=== PATIENT | male | born 1960 | race Caucasian/White ===

== ENCOUNTER 2020-03-25 11:54 | Day surgery (SDC) | payer OTHER, SELFPAY ==
[2020-03-18 10:23] VITALS: BMI 44.5
[2020-03-25 12:23] VITALS: BP 142/80; PULSE 96; RESP 20; TEMP 35.8; O2SAT 94
--- NOTE | 2020-03-25 12:25 | HO.ANESPROP2 ---
HPI - Anesthesia Eval Consult details Narrative: 59yo patient here for colonoscopy PMFSH Past Medical History Medical History (Updated 03/18/20 @ 10:33 by Misti Green) Arthritis Asthma CAD (coronary artery disease) Depression Diabetes Elevated cholesterol Hepatitis HIV (human immunodeficiency virus infection) HTN (hypertension) Myocardial infarction On beta maxx at home Wears dentures Family History Family history of problems with anesthesia: No Surgical History Surgical History (Updated 03/18/20 @ 10:32 by Misti Green) H/O colonoscopy History of esophagogastroduodenoscopy (EGD) Hx of appendectomy Hx of heart artery stent Hx of knee surgery History of Problems with Anesthesia: No Social History Social History Smoking Status: Never smoker Use of substances other than those prescribed or required for medical reasons: No Advance Directives Information Provided: No Recently lost weight without trying: No Meds Allergies Allergy/AdvReac Type Severity Reaction Status Date / Time cat dander [CATS] Allergy Unknown EYES Verified 03/18/20 10:34 SWELLING Home Medications Medication Instructions Recorded Confirmed Type albuterol sulfate 2 puff PO Q4-6H PRN 03/18/20 03/18/20 History allopurinol 2 tab PO DAILY 03/18/20 03/18/20 History nahsydtlz-exwebcrc-ruxgeml ala 1 tab PO DAILY 03/18/20 03/18/20 History [Biktarvy] cholecalciferol (vitamin D3) 25 mcg PO DAILY 03/18/20 03/18/20 History [Vitamin D3] citalopram 1 tab PO DAILY 03/18/20 03/18/20 History enalapril maleate 1 tab PO DAILY 03/18/20 03/18/20 History fluticasone propionate [Flovent 1 puff PO BID 03/18/20 03/18/20 History HFA] hydrochlorothiazide 1 tab PO DAILY 03/18/20 03/18/20 History loratadine 1 tab PO DAILY 03/18/20 03/18/20 History metformin 1 tab PO BID 03/18/20 03/18/20 History metoprolol succinate 1 tab PO DAILY 03/18/20 03/18/20 History rosuvastatin 1 tab PO BEDTIME 03/18/20 03/18/20 History Exam Exam Date and Time: March 25, 2020 1225 Height,Weight and Vital Signs: Height 5 ft 10.5 in Weight 142.882 kg Vital Signs Temp Pulse Resp BP Pulse Ox 03/25/20 12:23 96.5 F L 96 20 142/80 H 94 Pertinent Lab Results Pertinent Lab Results: Lab Results 03/25/20 Range/Units 12:30 POC Glucose 136 H (60-115) mg/dL Airway Mallampati Class: II TM Dist: >3cm Neck ROM: Full Denture: Upper and Lower Heart: RRR Lungs: CTAB Assessment and Plan Assessment Anesthesia Assessment: Anesthesia Plan Discussed and Chart Reviewed Final Anesthetic Review NPO: Yes ASA Class: III Final Preanesthetic Review: No Changes in Pt Med Stat, Meds/Allgs Chart Reviewed, Consent Obtained/Reviewed and Anes Risks/Benef Reviewed Patient Risk: Intermediate Procedure Risk: Low Anesthetic Plan Anesthetic Plan: MAC: Disposition: Standard PACU
[2020-03-25] MEDS: Lactated Ringers 1,000 ML 100 ML IVCONT (12:27)
[2020-03-25 12:34] LABS: Glucose, Whole Blood 136 mg/dL (60-115)
[2020-03-25] MEDS: Metoclopramide HCl 10 MG/2 ML VIAL IVPUSH (12:41)
--- NOTE | 2020-03-25 15:25 | MHC.SHP ---
Pre-Procedural Eval Section B Chief Complaint: Adenomatous, Colon Polyps Details of Present Illness: HX TUBULAR ADENOMAS NO CHANGE FROM PREOP IN DECEMBER-- Relevant Family History (Specify if Yes): No Relevant Social History: None Present Medications: see Short Stay Collaborative assessment Medical History: Significant History (MORBID OBESITY, HIV ON MEDS, HEP B, CAD WITH STENT, DEPRESSION) History of Previous Operations: Relevant previous surgery/procedure and date(s) (COLONOSCOPY-2014; APPENDECTOMY, STENT-2007, KNEE SURGERY) Allergies: Allergies Allergy/AdvReac Type Severity Reaction Status Date / Time cat dander [CATS] Allergy Unknown EYES Verified 03/18/20 10:34 SWELLING Review of Systems Sugical H&P ROS: Negative: Constitution and Respiratory and Yes, Specify: Cardiovascular (HAD STENT), Psychiatric (HX DEPRESSION), Gastrointestinal (POLYPS) and Endocrine (DIABETES) Exam Surgical H&P Exam: Normal: HEENT, Normal: Heart and Normal: Lungs and Significant Findings: Abdomen (OBESE) Plan Diagnosis/Plan: Unchanged Patient has been examined and remains a candidate for the planned procedure YES.
[2020-03-25 16:03] VITALS: BP 127/65; PULSE 84; RESP 16; TEMP 36.1; O2SAT 97
--- NOTE | 2020-03-25 16:06 | PM.PROC ---
Brief Operative Note Date of procedure: 03/25/20 Pre-op diagnosis: Hx of Tubular adenomas Post-op diagnosis: other (VERY POOR PREP) Procedure: EXAM TO CECUM. NO LARGE LESIONS Anesthesia: MAC (ESHA MARINA) Surgeon: Danyelle Miranda Estimated blood loss (mL): 0 Pathology: none sent Condition: stable Disposition: PACU
[2020-03-25 16:18] VITALS: BP 121/71; PULSE 83; RESP 18; TEMP 36.1; O2SAT 95
--- NOTE | 2020-03-26 16:53 | OP_ITS ---
SURGEON: Danyelle Miranda MD PREOPERATIVE DIAGNOSIS: History of tubular adenomas. POSTOPERATIVE DIAGNOSIS: Poor prep to the level of the cecum. PROCEDURE PERFORMED: Colonoscopy. ESTIMATED BLOOD LOSS: No blood loss. COMPLICATIONS: No complications. ANESTHESIA: ANESTHESIOLOGIST: Tina Mcwilliams CRNA.Tina Mcwilliams CRNA. ASSISTANTS: No election assistant. SPECIMENS: No specimens removed. EVP OPERATIONS: Danyelle Miranda M.D. CONDITION POSTPROCEDURE: Stable. FINDINGS: Digital rectal exam revealed sphincter tone to be slightly decreased, only the lower portion the prostate could be felt which appeared to be normal. Video colonoscope was introduced without difficulty from the initial start. There was retention of loose liquid stool, fiber residue, and was able to skirt over areas with some flushing and suctioning, intermittent obstruction due to the fibrous materials and the suction port. Despite obstacles, I was able to get to the level of the cecum with no visualization of the appendiceal orifice, ileocecal valve was seen. There appears to be no large lesion present. Scope was withdrawn, 1+ internal hemorrhoids were seen in the anal canal. This patient is high risk tubular adenomas. He says he complied with the entire prep. I would re-schedule his procedure for 6 to 12 months from now with a 2-day prep at that time to include the use of Dulcolax tablets on both days. ANESTHESIA TYPE: Monitored. GRAFT OR IMPLANTS: No grafts or implants. Danyelle Miranda MD MEN/MODL / [id number] [facility]
== END 2020-03-25 16:29 | disposition home or self-care (01) ==
PROVIDERS: PCP Family Medicine; Visit Provider Internal Medicine Gastroenterology
PROC: 0DJD8ZZ Inspection of Lower Intestinal Tract, Via Natural or Artificial Opening Endoscopic (ICD-10-PCS; CPT 45378; principal; 2020-03-25 13:10)
DX: Z12.11 Encounter for screening for malignant neoplasm of colon (principal); Z86.010 Personal history of colon polyps; K64.8 Other hemorrhoids; I10 Essential (primary) hypertension; J45.909 Unspecified asthma, uncomplicated; E11.9 Type 2 diabetes mellitus without complications; B19.10 Unspecified viral hepatitis B without hepatic coma; B20 Human immunodeficiency virus [HIV] disease; E78.00 Pure hypercholesterolemia, unspecified; Z79.51 Long term (current) use of inhaled steroids; Z79.84 Long term (current) use of oral hypoglycemic drugs; Z79.899 Other long term (current) drug therapy
CPT/HCPCS: G0105; 82947; J2765

== ENCOUNTER → 2020-04-01 08:33 | Outpatient (BNVA) | payer OTHER, SELFPAY | PROVIDERS: Visit Provider Physician Assistant | DX: Z86.010 Personal history of colon polyps (principal) | CPT/HCPCS: Q3014 ==

== ENCOUNTER 2021-02-13 12:28 | Outpatient (REF) | payer OTHER, SELFPAY ==
--- NOTE | ~2021-02-13 | XR_ITS ---
EXAMINATION: BILATERAL ELBOW X-RAY CLINICAL INFORMATION: Pain COMPARISON: Previous right elbow x-ray from 2016 and left elbow x-ray from 2009 TECHNIQUE: 3 views of each elbow FINDINGS: Right: Bone alignment is normal. No fracture or dislocation is seen. The joint spaces are normal. There is no joint effusion. There is a small olecranon osteophyte. Left elbow: Bone alignment is normal. No fracture or dislocation is joint spaces are normal. There is no joint effusion. Soft tissues are normal. XR/XR elbow LT min 3V IMPRESSION: Right elbow: Small olecranon osteophyte otherwise unremarkable exam. Left elbow: Unremarkable exam.
--- NOTE | ~2021-02-13 | XR_ITS ---
EXAMINATION: BILATERAL ELBOW X-RAY CLINICAL INFORMATION: Pain COMPARISON: Previous right elbow x-ray from 2016 and left elbow x-ray from 2009 TECHNIQUE: 3 views of each elbow FINDINGS: Right: Bone alignment is normal. No fracture or dislocation is seen. The joint spaces are normal. There is no joint effusion. There is a small olecranon osteophyte. Left elbow: Bone alignment is normal. No fracture or dislocation is joint spaces are normal. There is no joint effusion. Soft tissues are normal. XR/XR elbow RT min 3V IMPRESSION: Right elbow: Small olecranon osteophyte otherwise unremarkable exam. Left elbow: Unremarkable exam.
== END 2021-02-13 12:29 | disposition home or self-care (01) ==
LOC: HO.XRAY 12:28
PROVIDERS: PCP Family Medicine; Visit Provider Family Medicine
DX: M25.521 Pain in right elbow (principal); M25.522 Pain in left elbow
CPT/HCPCS: 73080

== ENCOUNTER → 2021-03-04 09:43 | Outpatient (BNVA) | payer OTHER, SELFPAY | PROVIDERS: Visit Provider Physician Assistant | DX: M77.12 Lateral epicondylitis, left elbow (principal) | CPT/HCPCS: 99202 ==

== ENCOUNTER 2021-03-11 10:32 | Outpatient (RCR) | payer OTHER, SELFPAY ==
--- NOTE | 2021-03-11 11:53 | MHC.OT.OEV ---
[address] [phone] F: [phone] Occupational Therapy Evaluation Diagnosis: LATERAL EPICONDYLITIS OF LEFT ELBOW Date of Onset: 08/26/20 Attending Provider: Luiz Suero Prescribed Treatment: EVAL AND TREAT History of Current Condition: REPORTS ONSET OF LEFT ELBOW PAIN ABOUT TWO WEEKS AFTER 2ND COVID-19 VACCINATION (RECEIVED IN AUGUST 2020). SENSITIVITIES AND INCREASED PAIN IN LEFT ELBOW REPORTED WITH COLD WEATHER. DENIES INJURY TO LEFT ELBOW. RECEIVED CFB AT ORTHOPEDIC OFFICE. XRAY 02/13/21: Right elbow: Small olecranon osteophyte otherwise unremarkable exam. Left elbow: Unremarkable exam. 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 HOBBIES WALKING THE DOG, VISITING WITH FRIENDS AND FAMILY, USING TABLET, WATCHING MOVIES Living Situation, Family and/or Social Support: LIVES WITH SISTER, BROTHER IN LAW AND TWO NEPHEWS; DOG Current Level of Function and Occupation Self Care, Employment, Leisure: DIFFICULTIES WITH HOLDING STEERING WHEEL. MILD DIFFICULTIES WITH OPENING TIGHT JAR. USING VACUUM WITH RIGHT HAND. ABLE TO LIFT LAUNDRY BASKET WITH SOME MILD DIFFICULTIES/ PAIN. UTILIZES STAND FOR TABLET. Sleep: NO DIFFICULTIES Driving: PRIMARILY USES LEFT ARM TO DRIVE, PLACES HAND AT 6:00 OR 9:00 LOCATION ON STEERING WHEEL. PAIN WHEN DRIVING. Pain Assessment Pain Score: 0-2/10 Pain Scale Used: Numeric (0 - 10) Pain Location and Description: L LATERAL ELBOW TO SHOULDER ACHY Aggravating Factors: DRIVING, GRIPPING STEERING WHEEL, COLD WEATHER Alleviating Factors: WEARING CFB, USING BIOFREEZE CREAM, STRETCHING Skin and Soft Tissue Assessment Skin and Soft Tissue: Wound Comments: SMALL OPEN WOUND TO DORSAL FOREARM, ABOUT 2 CM DISTAL FROM WHERE CFB IS WORN Edema Assessment Upper Extremity: WNL Lower Extremity: Comments: Dexterity Assessment Dexterity: WFL Comments: AROM(PROM) Strength Shoulder Flexion: Extension: Abduction: Internal Rotation: External Rotation: Comments: REPORTS MILD ANTERIOR SHOULDER PAIN WITH FORWARD FLEXION Flexion: Extension: Abduction: Internal Rotation: External Rotation: Comments: Elbow Flexion: L 135 Extension: L 5 Pronation: Supination: Comments: Flexion: Extension: Pronation: Supination: Comments: Wrist Flexion: L 70 Extension: L 50 Ulnar Deviation: Radial Deviation: Comments: Flexion: Extension: Ulnar Deviation: Radial Deviation: Comments: Digits Index MCP: PIP: DIP: Long MCP: PIP: DIP: Ring MCP: PIP: DIP: Small MCP: PIP: DIP: Comments: Gross Grasp: L 80, R 60 Lateral Pinch: Two-Point Pinch: Three-Jaw Norman: Comments: L ELBOW EXTENSION 70 POUNDS, PAINFREE R ELBOW EXTENSION 60 POUNDS Patient Education Primary Language: Malay Certified Performance Technologist Required: No Current Knowledge: Understands information with skills for self-management Teaching Method: Demonstration Handouts Verbal Education Needs Identified on Evaluation: ADL's Disease Information Equipment Use Exercise Pain Safety How did patient/family demonstrate learning? Patient demonstrates Patient verbalizes Barriers to Learning: None Readiness for Learning: Accepting Who was educated? Patient Comments: Plan of Care Assessment: FREDDYBAYRON REPORTS ABOUT A SEVEN MONTH HISTORY OF LEFT ELBOW PAIN. STATES THE PAIN BEGAN ABOUT TWO WEEKS AFTER RECEIVING COVID-19 VACCINATION IN LEFT ARM. HE HAS INCREASED PAIN WHEN THE WEATHER IS COLD AND HAS BEGUN TO WEAR LONG SLEEVED SHIRTS FOR COMFORT. HE IS CURRENTLY EMPLOYED THROUGH [employer] AND DRIVES MOST DAYS OF THE WEEK FOR LESS THAN 8 HOURS/DAY. 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 A CFB WAS PROVIDED TO HIM AT THE ORTHOPEDIC OFFICE AND REPORTS RELIEF. A 2% LIMITATION IS REPORTED PER THE QUICK DASH ASSESSMENT. A BRIEF COURSE OF OT IS WARRANTED TO ADDRESS JOINT PROTECTION/ ACTIVITY MODIFICATION, POSTURE, AND PAIN TO IMPROVE HIS QOL. STG Duration: 2 WEEKS Short Term Goals: IND HEP IND USE OF CFB WITH PROPER FIT AND USE IND JOINT PROTECTION/ ACTIVITY MODIFICATION WITH IADLs DEMO PROPER SEATED POSTURE IN A SIMULATED SITUATION REPORT <2/10 PAIN WITH IADLs WITH CFB AND Jt PROTECTION STRATEGIES IMPLEMENTED LTG Duration: Jail Goals: SEE ABOVE Frequency and Duration: The patient will be seen 2X/WEEK FOR 2 WEEKS Treatment Plan: Therapeutic Exercise Therapeutic Activity Home Exercise Program Splinting Neuro Re-ed Patient Education ADL Training Ultrasound NMES Iontophoresis Paraffin Fluidotherapy MHP Cold Packs Joint Mobilization Soft Tissue Mobilization Kinesiotaping Other (see comments) Electronically Signed By: LELIA VUONG OTR/L Reviewed/agree with student documentation: N/A Therapist: Please sign and return to therapist, Thank you for your referral.
--- NOTE | 2021-03-26 14:16 | MHC.OT.DC ---
[address] [phone] F: [phone] Occupational Therapy Discharge Note Provider: Luiz Suero Diagnosis: LATERAL EPICONDYLITIS OF LEFT ELBOW Date of Evaluation: 03/11/21 Date of Discharge: 03/26/21 Treatments to Date: 1 Cancellations to Date: 2 No Shows to Date: 2 Discharge Status: Visit Non-compliance Discharge Summary: MR CROSS PRESENTED FOR HIS OUTPATIENT OT ASSESSMENT. HE HAD TWO CANCELLATIONS AND TWO NO-SHOWS. PATIENT WILL BE DISCHARGED FROM THERAPY DUE TO THE CORE ATTENDANCE POLICY. Electronically Signed By: LELIA VUONG OTR/L Reviewed/agree with student documentation: N/A Therapist: Please Sign and return to therapist, thank you for your referral.
== END 2021-03-26 14:15 | disposition home or self-care (01) ==
LOC: HO.OT 10:32
PROVIDERS: PCP Family Medicine; Visit Provider Physician Assistant
DX: M77.12 Lateral epicondylitis, left elbow (principal)
CPT/HCPCS: 97110; 97165

== ENCOUNTER 2023-05-03 16:14 | Outpatient (REF) | payer MEDICARE, MEDICAID, SELFPAY ==
[2023-05-03 17:31] LABS: MANUAL DIFF FLAG NO
[2023-05-03 18:00] LABS: Basophils Absolute Auto 0.2 X10*3/uL (0.0-0.2); Basophils Percent Auto 1.5 % (0-2); Eosinophils Absolute Auto 0.3 X10*3/uL (0.0-0.4); Eosinophils Percent Auto 3.2 % (0-4); Hematocrit 44.2 % (42.0-52.0); Hemoglobin 14.7 g/dl (14.0-18.0); Imm Gran Abs Auto 0.08 X10*3/uL (0.00-0.03); Imm Gran Pct Auto 0.8 % (0.0-0.4); Lymphocytes Absolute Auto 4.1 X10*3/uL (1.2-4.9); Lymphocytes Percent Auto 41.4 % (20-40); Mean Corpuscular HGB Conc 33.3 g/dl (31.0-36.0); Mean Corpuscular Hemoglobin 30.9 pg (27.0-33.0); Mean Corpuscular Volume 92.9 fL (80.0-98.0); Mean Platelet Volume 11.3 fL (9.4-12.4); Monocytes Absolute Auto 0.6 X10*3/uL (0.1-1.2); Neutrophils Absolute Auto 4.6 x10*3/uL (2.0-8.3); Neutrophils Percent Auto 47.1 % (45-73); Platelet Count 229 X10*3/uL (160-400); Red Blood Count 4.76 X10*6/uL (4.60-5.80); Red Cell Distribution Width 12.3 % (11.0-16.0); White Blood Count 9.8 X10*3/uL (4.8-10.8)
[2023-05-03 18:11] LABS: Alanine Aminotransferase 48 U/L (0-40); Albumin Level 4.2 g/dL (3.5-5.0); Alkaline Phosphatase 97 U/L (39-117); Anion Gap 13 (12-20); Aspartate Amino Transferase 58 U/L (5-37); Bilirubin Total 0.7 mg/dL (0.0-1.0); Blood Urea Nitrogen 16 mg/dL (9-16); Calcium 9.8 mg/dL (8.4-10.2); Carbon Dioxide 27 mmol/L (22-29); Chloride 103 mmol/L (96-108); Estimated Glomerular Filt Rate > 60; Glucose Random 107 mg/dL (60-115); Potassium 4.1 mmol/L (3.3-5.1); Sodium 139 mmol/L (135-145); Total Protein 8.2 g/dL (6.5-8.0)
[2023-05-04 17:02] LABS: RPR Rapid Plasma Reagin REACTIVE (NON-REACTIVE)
[2023-05-05 10:34] LABS: Absolute CD3 Count 3679 cells/uL (840-3060); Absolute CD4 Count 1945 cells/uL (490-1740); Absolute CD8 Count 1821 cells/uL (180-1170); Absolute Lymphocytes 4159 cells/uL (850-3900); CD4 CD8 Ratio 1.07 (0.86-5.00); Percent CD3 Cells 88 % (57-85); Percent CD4 Cells 47 % (30-61); Percent CD8 Cells 44 % (12-42)
[2023-05-06 07:59] LABS: HIV RNA PCR Qn Copies 422 copies/mL (NOT DETECTED); HIV RNA PCR Qn Log Copies 2.63 (NOT DETECTED)
== END 2023-05-03 16:15 | disposition home or self-care (01) ==
LOC: HO.HHCL 16:14
PROVIDERS: Visit Provider Internal Medicine
DX: Z21 Asymptomatic human immunodeficiency virus [HIV] infection status (principal)
CPT/HCPCS: 36415; 80053; 85025; 86359; 86360; 86592; 86593; 87536

== ENCOUNTER 2023-07-05 08:05 | Outpatient (AMB) | payer OTHER, SELFPAY ==
--- NOTE | 2023-07-05 08:14 | MHC.OFFVIS ---
Intake Vital Signs 07/05/23 08:16 Height 5 ft 10 in Weight 313 lb 0.902 oz BMI 44.9 BP 147/79 H Blood Pressure Location Lt brachial Position Sitting Pulse 85 Intake Visit Reasons: Colonoscopy Screening Intake Note: Massimo presents in the office as a colonoscopy screening. CC: No concerns today- just due for a colonoscopy. Speech Language Specialist Required: No Allergies cat dander [CATS] Allergy (Unknown, Verified 07/05/23 08:16) EYES SWELLING Medication List - Last Reconciled 07/05/23 by Rhiannon Vital PA-C albuterol sulfate 90 mcg/actuation 2 puffs PO Q4-6H PRN allopurinol 200 mg PO DAILY osmasglzx-geynwawe-xcbucot ala 50-200-25 mg (Biktarvy) 1 tab PO DAILY cholecalciferol (vitamin D3) (Vitamin D3) 25 mcg PO DAILY citalopram 1 tab PO DAILY enalapril maleate 20 mg PO DAILY fluticasone propionate 220 mcg/actuation (Flovent HFA) 1 puff PO BID hydrochlorothiazide 1 tab PO DAILY loratadine 1 tab PO DAILY metformin ER 1 tab PO BID metoprolol succinate ER 1 tab PO DAILY rosuvastatin 1 tab PO BEDTIME HPI HPI Comments History of Present Illness Details A 62 y/o male hx colon polyps - poor [id number] recommended repeat colon 6-12 months. Her today to schedule follow-up colonoscopy He has no GI complaints He has a normal bowel pattern. He has very good appetite His diabetic taking metformin as well as Trulicity on Tuesday He has no nausea, vomiting, hematemesis, hematochezia fever chills He has no cardiac or respiratory issues [facility] Medical History Wears dentures HIV (human immunodeficiency virus infection) Arthritis Diabetes Hepatitis Depression Asthma On beta maxx at home Elevated cholesterol Myocardial infarction CAD (coronary artery disease) HTN (hypertension) Surgical History Hx of appendectomy Hx of knee surgery History of esophagogastroduodenoscopy (EGD) H/O colonoscopy Hx of heart artery stent Social History Household Members Other:: lives with sister Current occupational status: disabled Current occupation: rt handed Review of Systems Const Details: All systems reviewed and are negative All systems reviewed & are unremarkable except as noted in HPI and below Physical Exam Vital Signs: Last Vital Signs Pulse 85 07/05/23 08:16 BP 147/79 H 07/05/23 08:16 BMI result Body Mass Index 44.9 Const General: cooperative, comfortable and no acute distress Nutritional Appearance: obese Orientation/consciousness: patient oriented x3 Limitations: no limitations Eyes Sclerae: sclerae normal Resp Effort & Inspection: normal respiratory effort and able to speak in complete sentences Auscultation: clear to auscultation bilaterally, no rales, no rhonchi and no wheezes Cardio Rate: regular rate Rhythm: regular rhythm Heart sounds: S1 normal heart sound present and S2 normal heart sound present GI Inspection: Yes obesity Palpation (GI): Soft to palpation and nontender Auscultation: normal bowel sounds Neuro General: patient oriented x3 Extrem General: Yes full ROM Psych Mental Status: mental status grossly normal Speech and movement: Clear speech present Affect: normal affect Attitude: cooperative Thought process: Normal thought process present Thought content: Normal thought content present Insight: Good insight present (Psych) Judgement: Good judgement present (Psych) Assessment & Plan Assessment & Plan (1) S/P colonoscopy: Comment: 62-year-old male with a history of tubular adenomas 2017, poor prep 2019 Discussed extended prep today clear liquids is difficult for him, we will have him take MiraLax daily for 1 week prior to prep day. Clear liquids the entire day prior to procedure Code(s): Z98.890 - Other specified postprocedural states (2) History of colon polyps: Comment: adenoma 2016- poor prep 2019 Code(s): Z86.010 - Personal history of colonic polyps Plan Repeat colonoscopy- bariatric bed extended prep miralax QD for 1 wk prior to prep day MG prep - Mondays- Omit metformin Orders: Orders Colonoscopy - GI Use Only Today Z86.010 - Personal history of colonic polyps, Z98.890 - Other specified postprocedural states Medications: New polyethylene glycol 3350 (Miralax) Take QD for 1 week prior to prep day- 17 grams PO DAILY PRN 510 grams 2RF laxative effect bisacodyl (Dulcolax (bisacodyl)) Day before procedure @ 12 noon Take 4 tablets by mouth followed by large glass of water 20 mg (4 x 5 mg) PO ONCE 1 day PRN 4 tabs 0RF colonoscopy prep Z12.11 - Encounter for screening for malignant neoplasm of colon polyethylene glycol 3350 (Miralax) Take as directed by mouth the day before your procedure. 238 grams PO ONCE 1 day PRN 238 grams 0RF laxative effect Patient Instructions: Repeat colonoscopy- bariatric bed extended prep miralax QD for 1 wk prior to prep day MG prep Tr- Mondays- Omit metformin-day before (prep day) procedure Encouraged to call with questions or concerns Coding Level of Care Code Est Pt Level 3 (80531) Diagnoses S/P colonoscopy Z98.890 History of colon polyps Z86.010 Time Spent (min) 30
[2023-07-05 08:16] VITALS: BP 147/79; PULSE 85; BMI 44.9
== END 2023-07-05 09:07 | disposition home or self-care (01) ==
PROVIDERS: PCP Family Medicine; Visit Provider Physician Assistant
DX: Z98.890 Other specified postprocedural states (principal); Z86.010 Personal history of colon polyps
CPT/HCPCS: 99213

== ENCOUNTER → 2023-07-05 08:05 | Outpatient (BNVA) | payer OTHER, SELFPAY | PROVIDERS: PCP Family Medicine; Visit Provider Physician Assistant | DX: Z98.890 Other specified postprocedural states (principal); Z86.010 Personal history of colon polyps | CPT/HCPCS: 99212 ==

== ENCOUNTER 2023-11-09 08:26 | Outpatient (REF) | payer MEDICARE, SELFPAY ==
[2023-11-09 13:16] LABS: MANUAL DIFF FLAG NO
[2023-11-09 13:30] LABS: Basophils Absolute Auto 0.1 X10*3/uL (0.0-0.2); Basophils Percent Auto 0.8 % (0-2); Eosinophils Absolute Auto 0.3 X10*3/uL (0.0-0.4); Eosinophils Percent Auto 2.9 % (0-4); Hematocrit 40.6 % (42.0-52.0); Hemoglobin 13.4 g/dl (14.0-18.0); Imm Gran Abs Auto 0.05 X10*3/uL (0.00-0.03); Imm Gran Pct Auto 0.6 % (0.0-0.4); Lymphocytes Absolute Auto 3.3 X10*3/uL (1.2-4.9); Lymphocytes Percent Auto 38.4 % (20-40); Mean Corpuscular Hemoglobin 30.8 pg (27.0-33.0); Mean Corpuscular Volume 93.3 fL (80.0-98.0); Mean Platelet Volume 11.1 fL (9.4-12.4); Monocytes Absolute Auto 0.6 X10*3/uL (0.1-1.2); Monocytes Percent Auto 7.3 % (2-11); Neutrophils Absolute Auto 4.4 x10*3/uL (2.0-8.3); Platelet Count 185 X10*3/uL (160-400); Red Blood Count 4.35 X10*6/uL (4.60-5.80); Red Cell Distribution Width 12.5 % (11.0-16.0); White Blood Count 8.7 X10*3/uL (4.8-10.8)
[2023-11-09 13:34] LABS: Alanine Aminotransferase 42 U/L (0-40); Albumin Level 3.9 g/dL (3.5-5.0); Alkaline Phosphatase 90 U/L (39-117); Anion Gap 14 (12-20); Aspartate Amino Transferase 44 U/L (5-37); Bilirubin Total 0.7 mg/dL (0.0-1.0); Blood Urea Nitrogen 10 mg/dL (9-16); Calcium 9.4 mg/dL (8.4-10.2); Carbon Dioxide 26 mmol/L (22-29); Chloride 105 mmol/L (96-108); Cholesterol 109 mg/dL (<200); Estimated Glomerular Filt Rate > 60; Glucose Random 169 mg/dL (60-115); HDL Cholesterol 28 mg/dL (>40); LDL Cholesterol Calculated 52 mg/dL (<100); Potassium 3.9 mmol/L (3.3-5.1); Sodium 141 mmol/L (135-145); Total Protein 7.6 g/dL (6.5-8.0); Triglycerides 146 mg/dL (<150)
[2023-11-09 14:11] LABS: Reflex LDLD? No
[2023-11-11 14:12] LABS: RPR Rapid Plasma Reagin REACTIVE (NON-REACTIVE)
[2023-11-11 22:19] LABS: TS Negative Control Passed; TS Panel A 0; TS Panel B 0; TS Positive Control Passed; TSpotTB Negative (Negative)
[2023-11-12 17:48] LABS: Hepatitis B Viral DNA Qn - cp NOT DETECTED Log IU/mL (NOT DETECTED); Hepatitis B Viral DNA Qn-IU/mL NOT DETECTED (NOT DETECTED)
[2023-11-12 19:29] LABS: HIV RNA PCR Qn Copies 810 copies/mL (NOT DETECTED); HIV RNA PCR Qn Log Copies 2.91 (NOT DETECTED)
[2023-11-13 16:33] LABS: Absolute CD3 Count 3036 cells/uL (840-3060); Absolute CD4 Count 1682 cells/uL (490-1740); Absolute CD8 Count 1385 cells/uL (180-1170); Absolute Lymphocytes 3404 cells/uL (850-3900); CD4 CD8 Ratio 1.21 (0.86-5.00); Percent CD3 Cells 89 % (57-85); Percent CD4 Cells 49 % (30-61); Percent CD8 Cells 41 % (12-42)
== END 2023-11-09 08:27 | disposition home or self-care (01) ==
LOC: HO.HHCL 08:26
PROVIDERS: Visit Provider Internal Medicine
DX: Z21 Asymptomatic human immunodeficiency virus [HIV] infection status (principal)
CPT/HCPCS: 36415; 80053; 80061; 85025; 86359; 86360; 86481; 86592; 86593; 87517; 87536

== ENCOUNTER 2024-04-24 10:22 | Outpatient (REF) | payer MEDICARE, SELFPAY ==
[2024-04-24 11:07] LABS: MANUAL DIFF FLAG NO
[2024-04-24 11:14] LABS: Basophils Absolute Auto 0.1 X10*3/uL (0.0-0.2); Basophils Percent Auto 1.2 % (0-2); Eosinophils Absolute Auto 0.2 X10*3/uL (0.0-0.4); Eosinophils Percent Auto 2.3 % (0-4); Hematocrit 39.6 % (42.0-52.0); Hemoglobin 13.5 g/dl (14.0-18.0); Imm Gran Abs Auto 0.05 X10*3/uL (0.00-0.03); Imm Gran Pct Auto 0.5 % (0.0-0.4); Lymphocytes Absolute Auto 3.7 X10*3/uL (1.2-4.9); Lymphocytes Percent Auto 40.8 % (20-40); Mean Corpuscular HGB Conc 34.1 g/dl (31.0-36.0); Mean Corpuscular Hemoglobin 31.2 pg (27.0-33.0); Mean Corpuscular Volume 91.5 fL (80.0-98.0); Mean Platelet Volume 10.5 fL (9.4-12.4); Monocytes Absolute Auto 0.6 X10*3/uL (0.1-1.2); Monocytes Percent Auto 6.8 % (2-11); Neutrophils Absolute Auto 4.4 x10*3/uL (2.0-8.3); Neutrophils Percent Auto 48.4 % (45-73); Platelet Count 191 X10*3/uL (160-400); Red Blood Count 4.33 X10*6/uL (4.60-5.80); Red Cell Distribution Width 12.2 % (11.0-16.0); White Blood Count 9.1 X10*3/uL (4.8-10.8)
[2024-04-24 11:30] LABS: Estimated Average Glucose 151 mg/dL; Hemoglobin A1C 179.6773 umol/L; Hemoglobin A1c % 6.9 % (<6.0); Total Hemoglobin (HGBA1C) 3429.9654 umol/L
[2024-04-24 11:33] LABS: Cholesterol 102 mg/dL (<200); HDL Cholesterol 25 mg/dL (>40); LDL Cholesterol Calculated 37 mg/dL (<100); Triglycerides 200 mg/dL (<150)
[2024-04-24 11:38] LABS: Albumin Level 3.9 g/dL (3.5-5.0); Alkaline Phosphatase 93 U/L (39-117); Anion Gap 13 (12-20); Aspartate Amino Transferase 51 U/L (5-37); Bilirubin Total 0.7 mg/dL (0.0-1.0); Blood Urea Nitrogen 19 mg/dL (9-16); Calcium 8.9 mg/dL (8.4-10.2); Carbon Dioxide 23 mmol/L (22-29); Chloride 105 mmol/L (96-108); Estimated Glomerular Filt Rate > 60; Glucose Random 153 mg/dL (60-115); Potassium 3.9 mmol/L (3.3-5.1); Sodium 137 mmol/L (135-145); Total Protein 7.7 g/dL (6.5-8.0)
[2024-04-24 11:56] LABS: Alanine Aminotransferase 50 U/L (0-40)
[2024-04-24 11:57] LABS: Hepatitis A Antibody IgG REACTIVE (Nonreactive)
[2024-04-24 12:00] LABS: ~Hepatitis C Antibody Nonreactive (Nonreactive)
[2024-04-24 12:01] LABS: Creatinine Urine 100.91 mg/dL; Microalbum/Creatinine Ratio Ur 5.9 ug/mg cr (<30)
[2024-04-24 13:35] LABS: Reflex LDLD? No
[2024-04-26 01:14] LABS: Toxoplasma IgM Antibody <8.00 AU/mL
[2024-04-26 01:33] LABS: HIV RNA PCR Qn Copies 25 copies/mL (NOT DETECTED)
[2024-04-28 12:59] LABS: RPR Rapid Plasma Reagin NON-REACTIVE (NON-REACTIVE)
== END 2024-04-24 10:23 | disposition home or self-care (01) ==
LOC: HO.HHCL 10:22
PROVIDERS: Internal Medicine; Visit Provider Family Medicine
DX: Z21 Asymptomatic human immunodeficiency virus [HIV] infection status (principal); A53.9 Syphilis, unspecified; Z72.89 Other problems related to lifestyle; E11.65 Type 2 diabetes mellitus with hyperglycemia; I25.9 Chronic ischemic heart disease, unspecified; I10 Essential (primary) hypertension
CPT/HCPCS: 36415; 80053; 80061; 82043; 82570; 83036; 85025; 86592; 86708; 86735; 86762; 86765; 86777; 86778; 86787; 86803; 87536

== ENCOUNTER → 2024-08-08 08:15 | Outpatient (BNV) | payer MEDICARE, SELFPAY | PROVIDERS: PCP Family Medicine; Visit Provider Radiology Diagnostic Radiology | DX: Z13.820 Encounter for screening for osteoporosis (principal); B20 Human immunodeficiency virus [HIV] disease; Z79.899 Other long term (current) drug therapy | CPT/HCPCS: 77080 ==

== ENCOUNTER 2024-08-08 08:21 | Outpatient (REF) | payer MEDICARE, SELFPAY ==
--- NOTE | ~2024-08-08 | MM_ITS ---
EXAMINATION: DXA BONE DENSITY AXIAL HISTORY: Estrogen deficiency TECHNIQUE: [place] Dual energy absorptiometry (DEXA) of the lumbar spine, total left hip, and femoral neck was performed. COMPARISON: There are no prior studies for comparison. FINDINGS: The bone mineral density of the lumbar spine is 1.292 with a T-score of 0.4, and a Z-score of 0.2. This is indicative of normal bone mineral density. The bone mineral density of the left total hip is 1.138 with a T-score of 0.3, and a Z-score of 0.4. This is indicative of normal bone mineral density. The bone mineral density of the left femoral neck is 1.042 with a T-score of -0.2, and a Z-score of 0.4. This is indicative of normal bone mineral density. MM/XR DEXA axial skeleton IMPRESSION: Based on bone mineral density, and according to World Health Organization (WHO) criteria, the diagnosis is consistent with normal bone mineral density. All bone density values are in grams per centimeter squared (g/cm2). Statistically, 68% of repeat scans fall within 1 SD (+/- 0.010 g/cm2 for AP spine L1-L4) and 1 SD (+/- 0.012 g/cm2 for femur total) FRAX is a trademark of the [employer]'s [place] [facility] [employer], a World Health Organization (WHO) Collaborating Center. Electronically signed by: Andreas Noonan MD 08/08/2024 09:01 AM EDT
== END 2024-08-08 08:22 | disposition home or self-care (01) ==
LOC: HO.MAMMO 08:21
PROVIDERS: PCP Family Medicine; Visit Provider Internal Medicine
DX: Z13.820 Encounter for screening for osteoporosis (principal); M85.831 Other specified disorders of bone density and structure, right forearm
CPT/HCPCS: 77080

== ENCOUNTER 2024-10-18 09:12 | Outpatient (REF) | payer MEDICARE, SELFPAY ==
[2024-10-18 11:17] LABS: MANUAL DIFF FLAG NO
[2024-10-18 11:30] LABS: Basophils Absolute Auto 0.1 X10*3/uL (0.0-0.2); Basophils Percent Auto 1.1 % (0-2); Eosinophils Absolute Auto 0.2 X10*3/uL (0.0-0.4); Hematocrit 39.6 % (42.0-52.0); Hemoglobin 13.2 g/dl (14.0-18.0); Imm Gran Abs Auto 0.05 X10*3/uL (0.00-0.03); Imm Gran Pct Auto 0.6 % (0.0-0.4); Lymphocytes Absolute Auto 3.1 X10*3/uL (1.2-4.9); Lymphocytes Percent Auto 38.3 % (20-40); Mean Corpuscular HGB Conc 33.3 g/dl (31.0-36.0); Mean Corpuscular Hemoglobin 30.5 pg (27.0-33.0); Mean Corpuscular Volume 91.5 fL (80.0-98.0); Mean Platelet Volume 11.1 fL (9.4-12.4); Monocytes Absolute Auto 0.7 X10*3/uL (0.1-1.2); Monocytes Percent Auto 7.9 % (2-11); Neutrophils Absolute Auto 4.1 x10*3/uL (2.0-8.3); Neutrophils Percent Auto 50.1 % (45-73); Platelet Count 178 X10*3/uL (160-400); Red Blood Count 4.33 X10*6/uL (4.60-5.80); Red Cell Distribution Width 12.5 % (11.0-16.0); White Blood Count 8.2 X10*3/uL (4.8-10.8)
[2024-10-18 11:35] LABS: Alanine Aminotransferase 38 U/L (0-40); Albumin Level 4.1 g/dL (3.5-5.0); Alkaline Phosphatase 93 U/L (39-117); Anion Gap 10 (12-20); Aspartate Amino Transferase 39 U/L (5-37); Bilirubin Total 0.6 mg/dL (0.0-1.0); Blood Urea Nitrogen 16 mg/dL (9-16); Calcium 9.3 mg/dL (8.4-10.2); Carbon Dioxide 29 mmol/L (22-29); Chloride 103 mmol/L (96-108); Estimated Glomerular Filt Rate > 60; Glucose Random 125 mg/dL (60-115); Potassium 3.7 mmol/L (3.3-5.1); Sodium 138 mmol/L (135-145); Total Protein 7.5 g/dL (6.5-8.0)
[2024-10-18 11:54] LABS: ~HepC Num1 0.11 S/CO (0.00-0.79); ~Hepatitis C Antibody Nonreactive (Nonreactive)
[2024-10-18 14:19] LABS: CT PCR NOT DETECTED (Not Detect.); NG PCR NOT DETECTED (Not Detect.)
[2024-10-19 15:03] LABS: Hepatitis B Viral DNA Qn - cp NOT DETECTED Log IU/mL (NOT DETECTED); Hepatitis B Viral DNA Qn-IU/mL NOT DETECTED (NOT DETECTED)
[2024-10-19 15:18] LABS: HIV RNA PCR Qn Copies 447 copies/mL (NOT DETECTED); HIV RNA PCR Qn Log Copies 2.65 (NOT DETECTED)
[2024-10-21 08:33] LABS: TS Negative Control Passed; TS Panel A 0; TS Panel B 0; TS Positive Control Passed; TSpotTB Negative (Negative)
[2024-10-23 15:13] LABS: Absolute CD3 Count 2930 cells/uL (840-3060); Absolute CD4 Count 1621 cells/uL (490-1740); Absolute CD8 Count 1385 cells/uL (180-1170); Absolute Lymphocytes 3271 cells/uL (850-3900); CD4 CD8 Ratio 1.17 (0.86-5.00); Percent CD3 Cells 90 % (57-85); Percent CD4 Cells 50 % (30-61); Percent CD8 Cells 42 % (12-42)
== END 2024-10-18 09:13 | disposition home or self-care (01) ==
LOC: HO.HHCL 09:12
PROVIDERS: Visit Provider Internal Medicine
DX: Z21 Asymptomatic human immunodeficiency virus [HIV] infection status (principal); B18.1 Chronic viral hepatitis B without delta-agent
CPT/HCPCS: 80053; 85025; 86359; 86360; 86481; 86803; 87491; 87517; 87536; 87591

== ENCOUNTER → 2024-10-30 11:27 | Outpatient (REF) | payer MEDICARE, SELFPAY | LOC: HO.CARD 11:27 | PROVIDERS: PCP Family Medicine; Visit Provider Family Medicine | DX: R55 Syncope and collapse (principal) | CPT/HCPCS: 93270 ==

== ENCOUNTER → 2024-10-30 11:47 | Outpatient (BNV) | payer MEDICARE, SELFPAY | PROVIDERS: PCP Family Medicine; Visit Provider Internal Medicine Cardiovascular Disease | DX: I49.1 Atrial premature depolarization (principal); I49.3 Ventricular premature depolarization | CPT/HCPCS: 93272 ==

== ENCOUNTER 2024-11-27 10:27 | Outpatient (AMB) | payer MEDICARE, SELFPAY ==
--- NOTE | 2024-11-27 10:30 | A.OFFVIS_ITS ---
Vital Signs 11/27/24 10:33 Height 5 ft 10 in Weight 300 lb BMI 43.0 BP 143/74 H Blood Pressure Location Lt brachial Position Sitting Pulse 74 Pulse Oximetry (%) 96 Oxygen Delivery Method Room Air Intake Visit Reasons: pre colonoscopy/Rhiannon horner 07/02/2023 Intake Note: Patient complex follow up for 2nd pre Colonoscopy screening/Rhiannon horner was 07/02/2023 Patient cc: between diarrhea and constipation on and off. Denies any other GI issues. Flake Miller Helper Required: No Accompanied by: Self / Same As Patient Allergies cat dander (CATS) Allergy (Unknown, Verified 11/27/24 10:29) EYES SWELLING Medication List - Last Reconciled 11/27/24 by Елена Belcher CNP albuterol sulfate 90 mcg/actuation 2 puffs PO Q4-6H PRN allopurinol 200 mg PO DAILY bisacodyl (Dulcolax (bisacodyl)) 20 mg (4 x 5 mg) PO ONCE PRN 1 day cholecalciferol (vitamin D3) (Vitamin D3) 25 mcg PO DAILY citalopram 1 tab PO DAILY dulaglutide (Trulicity) 3 mg subcut QWEEK enalapril maleate 20 mg PO DAILY fluticasone propionate 220 mcg/actuation (Flovent HFA) 1 puff PO BID hydrochlorothiazide 1 tab PO DAILY loratadine 1 tab PO DAILY metformin ER 1 tab PO BID metoprolol succinate ER 1 tab PO DAILY polyethylene glycol 3350 (Miralax) 17 grams PO DAILY PRN polyethylene glycol 3350 (Miralax) 238 grams PO ONCE PRN 1 day rosuvastatin 1 tab PO BEDTIME HPI HPI pre colonoscopy/Rhiannon horner 07/02/2023: Details: Patient is a 64-year-old male with PMH of HIV, hypertension, hyperlipidemia, CAD, asthma and depression. Last visit with VANESSA Workman 06/15/2023 for pre colonoscopy screening He reports cancelling colonoscoy planned for last year due to illness. Today he reports alternating between diarrhea and constipation, significant changes in stool pattern noted over a year. Symptom patterns depend on dietary intake, with increased episodes linked to certain foods like greasy and commercially prepared sandwiches, and occasionally heat exposure. Recent episodes of vomiting occurred outdoors, associated with dizziness and exertion in heat, alleviated with water. Bowel regulation improved with modified diet. No significant nausea, heartburn, or trouble swallowing reported. Denies any recent fever or substantial appetite changes. Dietary changes implemented since a past myocardial infarction have included no fried foods or snacks and increased water intake. Social hx: -Alcohol: rare use, last consumed on New Year?s -Recreational drugs: none in past 30?40 years -Tobacco: never -Occupation: [employer] truck driver - family hx as below -denies personal hx of CA -tolerated anesthesia in the past without difficulty. PFSH Medical History (Updated 11/27/24 @ 13:52 by Елена Belcher CNP) Obesity Elevated LFTs Constipation Colon cancer screening Wears dentures HIV (human immunodeficiency virus infection) Arthritis Diabetes Hepatitis Depression Asthma On beta maxx at home Elevated cholesterol Myocardial infarction CAD (coronary artery disease) HTN (hypertension) Surgical History Hx of appendectomy Hx of knee surgery History of esophagogastroduodenoscopy (EGD) H/O colonoscopy Hx of heart artery stent Family History (Updated 11/27/24 @ 11:05 by Елена Belcher CNP) Mother Cancer Social History Household Members Other:: lives with sister Current occupational status: disabled Current occupation: rt handed Review of Systems Const Reports as per HPI ENT Reports as per HPI Card Reports as per HPI Resp Reports as per HPI GI Reports as per HPI Reports as per HPI Physical Exam Vital Signs: Last Vital Signs Pulse 74 11/27/24 10:33 BP 143/74 H 11/27/24 10:33 Pulse Ox 96 11/27/24 10:33 Oxygen Delivery Method Room Air 11/27/24 10:33 BMI result Body Mass Index 43.0 Const General: healthy appearing, no acute distress and well developed Nutritional Appearance: average body habitus Orientation/consciousness: patient oriented x3 HEENT Head: Yes normal to inspection, Yes normocephalic and Yes atraumatic Face and sinus: Yes normal facial exam Eyes General: appearance normal, both eyes and all related structures Neck Neck: Yes normal visual inspection Resp Effort & Inspection: normal respiratory effort, able to speak in complete sentences, no tracheal deviation and symmetric chest movement Auscultation: clear to auscultation bilaterally Cardio Jugular venous distension: no JVD Rate: regular rate Rhythm: regular rhythm Heart sounds: S1 normal heart sound present, S2 normal heart sound present, no gallops and no murmurs GI Inspection: Yes normal to inspection, No distended, Yes obesity, Yes striae and Yes other (Mild rectus abdominis diastasis) Palpation (GI): Soft to palpation, not firm, nontender and No hepatosplenomegaly present Auscultation: normal bowel sounds Neuro General: patient oriented x3 Gait exam (Neuro): Normal gait present Psych Appearance: grossly normal Mental Status: mental status grossly normal Speech and movement: Normal speech and movement present Affect: normal affect Attitude: cooperative Thought process: Normal thought process present Thought content: Normal thought content present Insight: Good insight present (Psych) Judgement: Good judgement present (Psych) Results Reviewed Results Reviewed: Date of Service: 03/25/[address]: Danyelle Miranda MD cc: Danyelle Miranda MD; KITA EVANS MD; DAVI DEGROOT MD~ SURGEON: Danyelle Miranda MD PREOPERATIVE DIAGNOSIS: History of tubular adenomas. POSTOPERATIVE DIAGNOSIS: Poor prep to the level of the cecum. PROCEDURE PERFORMED: Colonoscopy. ESTIMATED BLOOD LOSS: No blood loss. COMPLICATIONS: No complications. ANESTHESIA: ANESTHESIOLOGIST: Tina Mcwilliams CRNA.Tina Mcwilliams CRNA. ASSISTANTS: No loan officer assistant. SPECIMENS: No specimens removed. COTTON ACREAGE MEASURER: Danyelle Miranda M.D. CONDITION POSTPROCEDURE: Stable. FINDINGS: Digital rectal exam revealed sphincter tone to be slightly decreased, only the lower portion the prostate could be felt which appeared to be normal. Video colonoscope was introduced without difficulty from the initial start. There was retention of loose liquid stool, fiber residue, and was able to skirt over areas with some flushing and suctioning, intermittent obstruction due to the fibrous materials and the suction port. Despite obstacles, I was able to get to the level of the cecum with no visualization of the appendiceal orifice, ileocecal valve was seen. There appears to be no large lesion present. Scope was withdrawn, 1+ internal hemorrhoids were seen in the anal canal. This patient is high risk tubular adenomas. He says he complied with the entire prep. I would re-schedule his procedure for 6 to 12 months from now with a 2-day prep at that time to include the use of Dulcolax tablets on both days. ANESTHESIA TYPE: Monitored. GRAFT OR IMPLANTS: No grafts or implants Assessment & Plan Assessment & Plan (1) Colon cancer screening: Comment: 03/25/2020 colonoscopy complete with poor prep-internal hemorrhoids Code(s): Z12.11 - Encounter for screening for malignant neoplasm of colon Category: Medical Plan: Repeat colonoscopy indicated due to prior inadequate prep and family history of cancer (mother, type unknown; nephew, remission). Also appropriate for ongoing GI symptoms and history of HIV. -Cardiology clearance to be obtained due to cardiac history. -Two-day clear liquid diet prior to procedure, with detailed instructions provided. Medications: - understands diabetes medications will need to be held days prior to procedure. Nurse to review med holds per protocol. Patient educated on scheduling process, procedure preparation, including avoiding certain foods and ensuring clear liquid intake Advised on necessity for ride post-procedure due to sedation. (2) Constipation: Code(s): K59.00 - Constipation, unspecified Category: Medical Qualifiers: Constipation type: unspecified constipation type Qualified Code(s): K59.00 - Constipation, unspecified Plan: Patient reports chronic fluctuations between diarrhea and constipation, with clear dietary triggers and improvement following dietary modification. No alarm symptoms. Pattern and response to diet suggest functional etiology rather than organic disease. Medications:continue miralax as needed Reinforced lifestyle modifications to promote regularity: -higher fiber diet as tolerated, examples provided -adequate hydration with water -150 minutes of moderate intensity exercise per week Follow-Up: Reassess after colonoscopy or sooner if symptoms worsen (e.g., persistent vomiting, abdominal pain, inability to pass stool/gas). (3) Elevated LFTs: Code(s): R79.89 - Other specified abnormal findings of blood chemistry Category: Medical Plan: Mild, stable elevation in LFTs on serial monitoring, with improvement over time. Risk factors include obesity, DM, and HIV. No evidence of acute liver dysfunction or alternative etiology. Ongoing monitoring appropriate given multifactorial risk. Follow-Up: continue routine screening with ID (4) Obesity: Code(s): E66.9 - Obesity, unspecified Category: Medical Qualifiers: Obesity type: due to excess calories Obesity classification: adult class 3 (BMI >= 40) Serious obesity comorbidity presence: with serious comorbidity Body mass index: BMI 40.0-44.9 Qualified Code(s): E66.813 - Obesity, class 3; Z68.41 - Body mass index [BMI] 40.0-44.9, adult Plan: BMI 43.0 with approx 4.2% wt loss since 06/2023. He declined design project manager referral. Discussion on lifestyle modifications to promote healthy weight: -Well-balanced diet -Adequate hydration with water -150 minutes of moderate intensity exercise per week Plan Follow-up after colonoscopy or sooner as needed Time: I spent a total of 40 minutes on the date of encounter which includes: Preparing to see the patient (reviewed previous documentation, test results and medical history) Performing a medically appropriate exam and/or evaluation Ordering medications, tests, and procedures Documenting clinical information in the health record Medications: Refilled bisacodyl (Dulcolax (bisacodyl)) Day before procedure @ 12 noon Take 4 tablets by mouth followed by large glass of water 20 mg (4 x 5 mg) PO ONCE PRN 4 tabs 0RF colonoscopy prep 1 day Z12.11 - Encounter for screening for malignant neoplasm of colon polyethylene glycol 3350 (Miralax) Take as directed by mouth the day before your procedure. 238 grams PO ONCE PRN 238 grams 0RF laxative effect 1 day Coding Level of Care Code Established Pt Est Pt Level 5 (79702) Patient Type Established Diagnoses Colon cancer screening Z12.11 Constipation, unspecified constipation type K59.00 Constipation type: unspecified constipation type Elevated LFTs R79.89 Class 3 severe obesity due to excess calories with serious comorbidity and body mass index (BMI) of 40.0 to 44.9 in adult E66.813; Z68.41 Obesity type: due to excess calories Obesity classification: adult class 3 (BMI >= 40) Serious obesity comorbidity presence: with serious comorbidity Body mass index: BMI 40.0-44.9
[2024-11-27 10:33] VITALS: BP 143/74; PULSE 74; O2SAT 96; BMI 43.0
== END 2024-11-27 11:21 | disposition home or self-care (01) ==
LOC: HO.HGI 10:28
PROVIDERS: PCP Family Medicine; Visit Provider Nurse Practitioner Family
DX: K59.00 Constipation, unspecified (principal); R74.01 Elevation of levels of liver transaminase levels; Z12.11 Encounter for screening for malignant neoplasm of colon; E66.813 Obesity, class 3; Z68.41 Body mass index [BMI] 40.0-44.9, adult
CPT/HCPCS: 99215

== ENCOUNTER → 2024-11-27 10:27 | Outpatient (BNVA) | payer MEDICARE, SELFPAY | PROVIDERS: PCP Family Medicine; Visit Provider Nurse Practitioner Family | DX: Z12.11 Encounter for screening for malignant neoplasm of colon (principal); K59.00 Constipation, unspecified; R79.89 Other specified abnormal findings of blood chemistry; E66.813 Obesity, class 3; Z68.41 Body mass index [BMI] 40.0-44.9, adult; Z79.84 Long term (current) use of oral hypoglycemic drugs; Z79.899 Other long term (current) drug therapy | CPT/HCPCS: 99212 ==

== ENCOUNTER 2025-02-15 08:24 | Outpatient (REF) | payer MEDICARE, SELFPAY ==
[2025-02-15 11:26] LABS: MANUAL DIFF FLAG NO
[2025-02-15 11:46] LABS: Hematocrit 40.4 % (42.0-52.0); Hemoglobin 13.5 g/dl (14.0-18.0); Imm Gran Abs Auto 0.05 X10*3/uL (0.00-0.03); Imm Gran Pct Auto 0.6 % (0.0-0.4); Lymphocytes Absolute Auto 3.4 X10*3/uL (1.2-4.9); Mean Corpuscular HGB Conc 33.4 g/dl (31.0-36.0); Mean Corpuscular Hemoglobin 30.3 pg (27.0-33.0); Mean Corpuscular Volume 90.6 fL (80.0-98.0); NRBC Abs Auto 0.000 X10*3/uL (0.0-0.012); NRBC Pct Auto 0.0 /100WBC (0.0-0.2); Platelet Count 181 X10*3/uL (160-400); Red Blood Count 4.46 X10*6/uL (4.60-5.80); White Blood Count 8.6 X10*3/uL (4.8-10.8)
[2025-02-15 11:51] LABS: Microalbum/Creatinine Ratio Ur 32.5 ug/mg cr (<30)
[2025-02-15 12:15] LABS: Alanine Aminotransferase 36 U/L (0-40); Albumin Level 4.1 g/dL (3.5-5.0); Alkaline Phosphatase 107 U/L (39-117); Anion Gap 14 (12-20); Aspartate Amino Transferase 74 U/L (5-37); Blood Urea Nitrogen 17 mg/dL (9-16); Calcium 9.7 mg/dL (8.4-10.2); Carbon Dioxide 26 mmol/L (22-29); Chloride 103 mmol/L (96-108); Estimated Glomerular Filt Rate > 60; Potassium 3.7 mmol/L (3.3-5.1); Sodium 139 mmol/L (135-145); Total Protein 7.6 g/dL (6.5-8.0)
[2025-02-15 12:51] LABS: Folate 4.6 ng/mL (> or = 4.0); Vitamin B12 238 pg/mL (200-900)
[2025-02-15 18:51] LABS: Cholesterol 97 mg/dL (<200); HDL Cholesterol 25 mg/dL (>40); Triglycerides 181 mg/dL (<150)
[2025-02-15 19:58] LABS: Reflex LDLD? No
[2025-02-18 09:23] LABS: HIV RNA PCR Qn Copies 251 copies/mL (NOT DETECTED); HIV RNA PCR Qn Log Copies 2.40 (NOT DETECTED)
== END 2025-02-15 08:25 | disposition home or self-care (01) ==
LOC: HO.HHCL 08:24
PROVIDERS: Referring Provider Internal Medicine; Visit Provider Family Medicine
DX: Z21 Asymptomatic human immunodeficiency virus [HIV] infection status (principal); E11.65 Type 2 diabetes mellitus with hyperglycemia; I10 Essential (primary) hypertension
CPT/HCPCS: 36415; 80053; 80061; 82043; 82570; 82607; 82746; 85025; 87536

== ENCOUNTER 2025-02-25 08:20 | Outpatient (REF) | payer MEDICARE, SELFPAY ==
[2025-02-25 11:54] LABS: Alanine Aminotransferase 39 U/L (0-40); Albumin Level 4.3 g/dL (3.5-5.0); Alkaline Phosphatase 99 U/L (39-117); Anion Gap 15 (12-20); Aspartate Amino Transferase 41 U/L (5-37); Blood Urea Nitrogen 24 mg/dL (9-16); Calcium 10.0 mg/dL (8.4-10.2); Carbon Dioxide 24 mmol/L (22-29); Chloride 105 mmol/L (96-108); Cholesterol 120 mg/dL (<200); Estimated Glomerular Filt Rate > 60; HDL Cholesterol 26 mg/dL (>40); Potassium 3.8 mmol/L (3.3-5.1); Sodium 140 mmol/L (135-145); Total Protein 8.1 g/dL (6.5-8.0); Triglycerides 250 mg/dL (<150)
[2025-02-25 11:59] LABS: Reflex LDLD? No
[2025-02-27 02:14] LABS: HIV RNA PCR Qn Copies 122 copies/mL (NOT DETECTED); HIV RNA PCR Qn Log Copies 2.09 (NOT DETECTED)
[2025-03-05 22:08] LABS: HIV 1 Integrase Proviral DNA DETECTED; HIV 1 PR RT Proviral DNA DETECTED
== END 2025-02-25 08:21 | disposition home or self-care (01) ==
LOC: HO.HHCL 08:20
PROVIDERS: PCP Family Medicine; Referring Provider Internal Medicine; Visit Provider Family Medicine
DX: E11.65 Type 2 diabetes mellitus with hyperglycemia (principal); I10 Essential (primary) hypertension; B20 Human immunodeficiency virus [HIV] disease; E78.5 Hyperlipidemia, unspecified
CPT/HCPCS: 36415; 80053; 80061; 87536; 87900; 87901; 87906

== ENCOUNTER 2025-05-06 11:54 | Outpatient (REF) | payer MEDICARE, SELFPAY ==
[2025-05-06 14:49] LABS: Anion Gap 13 (12-20); Blood Urea Nitrogen 20 mg/dL (9-16); Calcium 10.3 mg/dL (8.4-10.2); Carbon Dioxide 30 mmol/L (22-29); Chloride 102 mmol/L (96-108); Estimated Glomerular Filt Rate 60; Magnesium 1.7 mg/dL (1.6-2.6); Potassium 3.7 mmol/L (3.3-5.1); Sodium 141 mmol/L (135-145)
[2025-05-07 12:48] LABS: Rapid Plasma Reagin Ab Titer 1:2
== END 2025-05-06 11:55 ==
LOC: HO.HHCL 11:54
PROVIDERS: PCP Family Medicine; Visit Provider Family Medicine
DX: E87.6 Hypokalemia (principal); Z86.19 Personal history of other infectious and parasitic diseases; Z20.2 Contact with and (suspected) exposure to infections with a predominantly sexual mode of transmission
CPT/HCPCS: 36415; 80048; 83735; 86592; 86593